=== PATIENT | male | born 1975 | race Two or more races ===

== ENCOUNTER → 2023-03-06 | Emergency (ER) | payer OTHER ==
[~2023-03-06] VITALS: Ht 162.6 cm; Wt 81.6 kg
[~2023-03-06] MED LIST: LEXAPRO20 MG; WELLBUTRIN SR150 MG
== END | disposition home or self-care (01) ==
LOC: ER 16:06
PROVIDERS: Emergency Medicine
DX: L03.116 Cellulitis of left lower limb (principal); L03.115 Cellulitis of right lower limb; F19.20 Other psychoactive substance dependence, uncomplicated; Z91.013 Allergy to seafood; I87.2 Venous insufficiency (chronic) (peripheral)
CPT/HCPCS: 36415; 71046; 76700; 76856; 93923; 93970; 96365; 99284; J0690